=== PATIENT | male | born 1995 | race Caucasian/White ===

== ENCOUNTER → 2017-01-02 | Outpatient (CLI) | payer BC ==
[~2017-01-02] MED LIST: LEXAPRO 10MG10 MG; MULTIPLE VITAMI1 CAP PO
== END ==
LOC: COL.RAD 09:44
DX: K76.89 Other specified diseases of liver (principal)

== ENCOUNTER → 2017-08-06 | Outpatient (CLI) | payer BC | LOC: COL.RAD 08-01 09:45 | DX: K76.0 Fatty (change of) liver, not elsewhere classified (principal); R16.0 Hepatomegaly, not elsewhere classified ==